=== PATIENT | female | born 1975 | race Caucasian/White ===

== ENCOUNTER 2018-10-17 21:59 | Emergency (ER) | payer MEDICAID, OTHER ==
[~2018-10-17] VITALS: Ht 157.5 cm; Wt 53.5 kg
[2018-10-17 22:16] VITALS: BP 133/80
--- NOTE | 2018-10-17 22:17 | NUR ---
ED Nurse Note: PT CAME FROM HOME C/O RIGHT EARRACHE X2 WEEKS PER PT SHE WAS AT [facility] TODAY AND WAS GIVEN CIPROFLOAXCIN, PT TOOK ADVIL EARLIER TODAY PER PT IT DIDNT HELP
[2018-10-17] MEDS ORDERED: TRAMADOL HCL50 MG ORAL (22:27)
--- NOTE | 2018-10-17 22:27 | NUR ---
ED Nurse Note: INFORMED ERMD PT WILL BE DRIVING HERSELF, PER ERMD HE WILL CANCEL NORCO ORDER.
--- NOTE | 2018-10-17 22:27 | Emergency Room Report ---
History of Present Illness General Chief Complaint: Earache Source: Patient Present Illness HPI Is a 43-year-old female with no significant past medical history. She presents with chief point of right ear pain. Onset for last 2 weeks. She went to the [facility] clinic today and was prescribed Cipro. She was also told that there was something in her ear. Her pain is 8 out of 10. Nothing made it better. Yarning coughing makes it worse. Denies any other complaint. Had congestion runny nose but none now. Allergies: Coded Allergies: AMOXICILLIN (Verified Allergy, Unknown, 10/17/18) CLAVULANIC ACID (Verified Allergy, Unknown, 10/17/18) Patient History Past Medical History: see triage record, old chart reviewed Past Surgical History: none Pertinent Family History: none Social History: Denies: smoking Last Menstrual Period: Sep 27 2018 Now: No Immunizations: other Reviewed Nursing Documentation: PMH: Agreed; PSxH: Agreed Nursing Documentation-PMH Hx Asthma: Yes Review of Systems Eye: Denies: eye pain, blurred vision ENT: Reports: ear pain; Denies: nose congestion, throat swelling Respiratory: Denies: cough, shortness of breath Cardiovascular: Denies: chest pain, palpitations Gastrointestinal: Denies: abdominal pain, diarrhea, nausea, vomiting Musculoskeletal: Denies: back pain, joint pain Skin: Denies: rash Neurological: Denies: headache, numbness Endocrine: Denies: increased thirst, increased urine Hematologic/Lymphatic: Denies: easy bruising All Other Systems: negative except mentioned in HPI Physical Exam Vital Signs Date Time Temp Pulse Resp B/P (MAP) Pulse Ox O2 Delivery O2 Flow Rate FiO2 10/17/18 22:06 98.2 81 19 133/80 98 Room Air vitals normal Sp02 EP Interpretation: reviewed, normal General Appearance: well appearing, no apparent distress, alert Head: normocephalic, atraumatic Eyes: bilateral eye PERRL, bilateral eye EOMI ENT: hearing grossly normal, normal pharynx, other - Right TM with erythema. Left TM is dull. Right ear canal with hard wax but no foreign body. No mass. Neck: full range of motion, supple, no meningismus Respiratory: chest non-tender, lungs clear, normal breath sounds Cardiovascular #1: regular rate, rhythm, no murmur Gastrointestinal: normal bowel sounds, non tender, no mass, no organomegaly, no bruit, non-distended Musculoskeletal: back normal, gait/station normal, normal range of motion Psychiatric: mood/affect normal Skin: warm/dry Medical Decision Making Diagnostic Impression: Primary Impression: Otitis media Qualified Codes: H66.90 - Otitis media, unspecified, unspecified ear ER Course Patient with otitis media. No perforation or mastoiditis. No meningitis. No foreign body. We'll discharge home. Last Vital Signs Date Time Temp Pulse Resp B/P (MAP) Pulse Ox O2 Delivery O2 Flow Rate FiO2 10/17/18 22:16 98.2 81 19 133/80 98 Room Air Status: unchanged Disposition: HOME, SELF-CARE Condition: Stable Scripts Tramadol Hcl* (ULTRAM*) 50 Mg Tablet 50 MG ORAL Q6H PRN for For Pain, #20 TAB 0 Refills Prov: Carlos Blood MD 10/17/18 Patient Instructions: Otitis Media, Adult, [id number] Additional Instructions: Follow-up with your doctor in 7 days. Return if symptom worsen. Carlos Blood MD Oct 17, 2018 22:27
[2018-10-17] MEDS ORDERED: HYDROcodone/Acetamin 5/325 tab ORAL ONE (22:30)
[2018-10-17 22:36] VITALS: BP 133/80
--- NOTE | 2018-10-17 22:37 | NUR ---
ER DISCHARGE NOTE: Patient is cleared to be discharged per ERMD, pt is aox4, on room air, with stable vital signs. pt was given dc and prescription instructions, pt was able to verbalize understanding, pt id band remvoed. pt is able to ambulate with steady gait. pt took all belongings.
== END 2018-10-17 22:37 | disposition home or self-care (01) ==
LOC: EMR 22:17
DX: H66.90 Otitis media, unspecified, unspecified ear (principal); J45.909 Unspecified asthma, uncomplicated; Z88.1 Allergy status to other antibiotic agents; Z88.8 Allergy status to other drugs, medicaments and biological substances
CPT/HCPCS: 99282